=== PATIENT | male | born 1990 | race Caucasian/White ===

== ENCOUNTER 2016-04-17 07:58 | Emergency (ER) | payer OTHER | END 2016-04-17 09:16 | disposition home or self-care (01) | LOC: ER 07:58 | DX: J02.9 Acute pharyngitis, unspecified (principal); M79.644 Pain in right finger(s); I10 Essential (primary) hypertension; Z87.891 Personal history of nicotine dependence | CPT/HCPCS: 87651 ==

== ENCOUNTER 2016-06-28 15:12 | Emergency (ER) | payer OTHER | END 2016-06-28 17:57 | disposition home or self-care (01) | LOC: ER 15:12 | DX: R09.1 Pleurisy (principal); R00.2 Palpitations; Z87.891 Personal history of nicotine dependence | CPT/HCPCS: 36415 ==